=== PATIENT | female | born 1980 | race Caucasian/White ===

== ENCOUNTER 2023-02-01 17:50 | Emergency (ER) | payer BC ==
[~2023-02-01] VITALS: Ht 162.6 cm; Wt 63.5 kg
[2023-02-01] MEDS ORDERED: FAMOTIDINE. 20 MG/2 ML VIAL IV ONE ×2 (18:00→18:09)
[2023-02-01] MEDS ORDERED: IV NORMAL SALINE 1000 ML BAG IV ONE (18:00)
[2023-02-01] MEDS ORDERED: methylPREDNISolone SOD SUCC 125 MG/2 ML VIAL IV ONE (18:00)
[2023-02-01] MEDS ORDERED: methylPREDNISolone SOD SUCC 125 MG/2 ML VIAL ONE (18:08)
[2023-02-01] MEDS ORDERED: PRED50TA PO (18:17)
[2023-02-01] MEDS ORDERED: FAMO-132 PO (18:17)
[2023-02-01] MEDS ORDERED: DIPH25TA25 PO (18:17)
[2023-02-01] MEDS ORDERED: EPIN0.3P3 IM (19:48)
[2023-02-01 20:06] VITALS: BP 125/71; TEMP 98; O2SAT 100
== END 2023-02-01 19:55 | disposition home or self-care (01) ==
LOC: ER 17:53
DX: T78.2XXA Anaphylactic shock, unspecified, initial encounter (principal); Y92.89 Other specified places as the place of occurrence of the external cause
CPT/HCPCS: 99284; 96374; 96361; 96375; J3490; J2930; J7040; A4606; A4663